=== PATIENT | female | born 1950 | race Two or more races ===

== ENCOUNTER 2019-01-15 12:28 | Outpatient (CLI) | payer OTHER ==
[2019-01-18] MEDS ORDERED: METFORMIN HCL850 MG PO (07:40)
[2019-01-18] MEDS ORDERED: GABAPENTIN800 MG PO (07:40)
[2019-01-18] MEDS ORDERED: CLOPIDOGREL BIS75 MG PO (07:40)
[2019-01-18] MEDS ORDERED: TRAMADOL HCL50 MG PO (07:41)
[2019-01-18] MEDS ORDERED: COZAAR50 MG PO (07:41)
[2019-01-18] MEDS ORDERED: LANTUS (07:42)
== END 2019-01-15 14:53 | disposition home or self-care (01) ==
LOC: RAD 12:28
DX: M25.562 Pain in left knee (principal)

== ENCOUNTER → 2019-01-23 | Day surgery (SDC) | payer OTHER ==
[~2019-01-23] MED LIST: CLOPIDOGREL BIS75 MG PO; COZAAR50 MG PO; GABAPENTIN800 MG PO; LANTUS; METFORMIN HCL850 MG PO; PERCOCET 5-3251 EACH PO; TRAMADOL HCL50 MG PO
== END | disposition home or self-care (01) ==
LOC: ADM 01-18 07:00 → CIR.AMB 07:00
DX: S82.092A Other fracture of left patella, initial encounter for closed fracture (principal); M66.262 Spontaneous rupture of extensor tendons, left lower leg

== ENCOUNTER 2023-02-28 10:18 | Outpatient (CLI) | payer OTHER | END 2023-02-28 10:27 | disposition home or self-care (01) | LOC: RAD 10:18 | PROVIDERS: ATTEND Orthopaedic Surgery | DX: M79.642 Pain in left hand (principal) ==

== ENCOUNTER 2023-03-01 13:57 | Outpatient (CLI) | payer OTHER | END 2023-03-01 14:01 | disposition home or self-care (01) | LOC: RAD 13:57 | PROVIDERS: ATTEND Orthopaedic Surgery | DX: M79.642 Pain in left hand (principal) ==

== ENCOUNTER 2023-05-04 13:22 | Outpatient (CLI) | payer OTHER | END 2023-05-04 13:31 | disposition home or self-care (01) | LOC: NUCLEAR 13:22 | PROVIDERS: ATTEND Orthopaedic Surgery | DX: M81.0 Age-related osteoporosis without current pathological fracture (principal) ==

== ENCOUNTER → 2023-05-06 08:46 | Outpatient (CLI) | payer OTHER ==
[2023-05-06 10:23] LABS: ALBUMIN 3.8 gm/dL (3.4-5.0); BILIRUBIN TOTAL 0.33 mg/dL (0.3-1.2); CALCIUM 9.5 mg/dL (8.5-10.1); CREATININE SERUM 0.48 mg/dL (0.55-1.02); GFR 126.42; GLOBULINA 3.8 G/DL (2.4-3.5); POTASSIUM 4.62 mEq/L (3.5-5.1); TOTAL PROTEIN 7.6 gm/dL (6.4-8.2)
== END | disposition home or self-care (01) ==
LOC: LAB 08:46
PROVIDERS: ATTEND Orthopaedic Surgery
DX: E55.9 Vitamin D deficiency, unspecified (principal); M85.9 Disorder of bone density and structure, unspecified; E56.1 Deficiency of vitamin K; E21.3 Hyperparathyroidism, unspecified; M81.8 Other osteoporosis without current pathological fracture